=== PATIENT | female | born 1965 ===

== ENCOUNTER → 2024-12-31 | Outpatient (CLI) | payer MEDICARE, OTHER | LOC: LAB SHORT 07:49 → LAB 07:49 | DX: B35.1 Tinea unguium (principal); L60.2 Onychogryphosis | CPT/HCPCS: 88305; 88312 ==

== ENCOUNTER 2025-04-09 07:37 | Day surgery (SDC) | payer MEDICARE, OTHER ==
[~2025-04-09] VITALS: Ht 162.6 cm; Wt 100.8 kg
[2025-04-09] MEDS ORDERED: BUSP5 (08:11)
[2025-04-09] MEDS ORDERED: Methocarbamol750 MG (08:11)
[2025-04-09] MEDS ORDERED: HYDHCL25 (08:11)
[2025-04-09] MEDS ORDERED: DULOXETINE HCL60 M1 (08:11)
[2025-04-09] MEDS ORDERED: CLIMARA1 EACH (08:12)
[2025-04-09] MEDS ORDERED: PREG150 (08:12)
[2025-04-09] MEDS ORDERED: OMEPRAZOLE MAGN20 M1 (08:14)
[2025-04-09] MEDS ORDERED: Crestor40 MG (08:14)
[2025-04-09] MEDS ORDERED: Lisinopril2.5 MG (08:16)
[2025-04-09] MEDS ORDERED: AMITRIPTYLINE100 M6 (08:16)
[2025-04-09] MEDS ORDERED: ROSUVASTATIN CA20 MG (08:16)
[2025-04-09] MEDS ORDERED: Benzocaine Oral Spray 0.5ML UD ONE (08:55)
[2025-04-09] MEDS ORDERED: Midazolam HCL 1 MG/ML 5MLVIAL ONE (08:59)
--- NOTE | 2025-04-09 09:00 | NUR ---
04/09/25 0900 Candy Cain PT. HAS FIBROMYALGIA & ALL OVER PAIN RATING A "7". WAS TOLD NOT TO TAKE HER PAIN MEDS TODAY.
--- NOTE | 2025-04-09 09:54 | NUR ---
04/09/25 0954 Candy Cain S OBERSERVED ON RIGHT BUTTOCKS/HIP AREA RED DISCOLORATION OR BRUISING. ALSO SCABBED OVER LESIONS ON HER ARMS. DR. LOPEZ.
[2025-04-09 10:20] VITALS: BP 162/87
== END 2025-04-09 10:24 | disposition home or self-care (01) ==
LOC: ORSCSDS 07:37
PROVIDERS: Internal Medicine Gastroenterology
PROC: 0DB68ZX Excision of Stomach, Via Natural or Artificial Opening Endoscopic, Diagnostic (ICD-10-PCS; principal; 2025-04-09 09:15)
PROC: 0DJD8ZZ Inspection of Lower Intestinal Tract, Via Natural or Artificial Opening Endoscopic (ICD-10-PCS; principal; 2025-04-09 09:15)
DX: D50.9 Iron deficiency anemia, unspecified (principal); K31.A0 Gastric intestinal metaplasia, unspecified; K29.50 Unspecified chronic gastritis without bleeding; K57.30 Diverticulosis of large intestine without perforation or abscess without bleeding; K21.9 Gastro-esophageal reflux disease without esophagitis; R13.10 Dysphagia, unspecified; R11.2 Nausea with vomiting, unspecified; I10 Essential (primary) hypertension; M79.7 Fibromyalgia; J44.9 Chronic obstructive pulmonary disease, unspecified; E11.9 Type 2 diabetes mellitus without complications; E66.01 Morbid (severe) obesity due to excess calories; Z68.38 Body mass index [BMI] 38.0-38.9, adult; Z86.0100 Personal history of colon polyps, unspecified; Z85.79 Personal history of other malignant neoplasms of lymphoid, hematopoietic and related tissues; Z85.3 Personal history of malignant neoplasm of breast; Z85.118 Personal history of other malignant neoplasm of bronchus and lung; Z80.0 Family history of malignant neoplasm of digestive organs; Z79.84 Long term (current) use of oral hypoglycemic drugs; Z79.899 Other long term (current) drug therapy; F17.210 Nicotine dependence, cigarettes, uncomplicated
CPT/HCPCS: 82947; 88305; 88341; 88342; A9270; J2250; J2704; J7120